=== PATIENT | male | born 1955 | race Caucasian/White ===

== ENCOUNTER 2021-10-12 05:07 | Emergency (ER) | payer MEDICARE, BC ==
[~2021-10-12] VITALS: Ht 177.8 cm; Wt 98.4 kg
[~2021-10-12 05:07] MED LIST: CEFUROXIME250 MG PO; DOXYCYCLINE HY100 MG PO; ELIQUIS5 MG PO; FISH OIL 1,2001 EAC4 PO; FLAX SEED OIL1 EACH PO; LOSARTAN POTAS100 MG PO; SEPTRA DS TABL1 EACH PO; TYLENOL WITH C1 EACH PO; VITAMIN D2000 UNIT PO
== END 2021-10-12 07:10 | disposition home or self-care (01) ==
LOC: ED 05:07
DX: N48.33 Priapism, drug-induced (principal); Z85.46 Personal history of malignant neoplasm of prostate; I10 Essential (primary) hypertension; Z88.1 Allergy status to other antibiotic agents; Z88.8 Allergy status to other drugs, medicaments and biological substances; Z79.899 Other long term (current) drug therapy
CPT/HCPCS: 10160; 82803; 99284-25; A9270

== ENCOUNTER 2022-12-16 07:21 | Day surgery (SDC) | payer MEDICARE, BC ==
[2022-12-10 08:14] VITALS: BP 135/77
[~2022-12-16] VITALS: Ht 177.8 cm; Wt 100.0 kg
--- NOTE | ~2022-12-16 | OR ---
[facility] [address] [facility] [place], [place] [address] [place] DATE OF OPERATION: 12/16/2022 SURGEON: Mateo Chou MD PREOPERATIVE DIAGNOSIS: Colon screening. POSTOPERATIVE DIAGNOSIS: Sigmoid diverticulosis. PROCEDURE: Total colonoscopy to the cecum. ANESTHESIA: Intravenous sedation with propofol infusion, Beck Velasquez CRNA. INDICATION: This 67-year-old white man is a patient of [facility] Blunt and underwent colonoscopy in 2012 showing inflammatory changes of the cecum with no sign of polyp and ileum was normal. He is generally symptom-free at this time. He is here for colonoscopy and surveillance. He understands the risk of bleeding, infection, and perforation and wished to proceed. FINDINGS: The prep was good. Complete colonoscopy was undertaken of the cecum without question. Full intubation of the cecum was acquired. The terminal ileum and cecum were normal. The remaining colon was normal except for diverticular changes of the sigmoid. DESCRIPTION OF PROCEDURE: The patient was brought to the endoscopy suite and placed in the lateral decubitus position, given intravenous sedation with propofol infusional technique based on numerous medical cofactors. After satisfactory sedation was induced, digital rectal exam was found to be normal. An Olympus video colonoscope was passed in the rectum and manipulated throughout the colon ultimately intubating the cecum itself. The scope was withdrawn from that point and examination throughout showed no sign of abnormality into the sigmoid and left colon. There are scattered deep sulci diverticula were noted. Retroflexed view of the rectum was normal. Scope was removed and the patient was taken to the recovery room in good condition. CONCLUDING DIAGNOSIS: PATIENT NAME: SONYA FIGUEROA OPERATIVE REPORT DATE OF : 53 REPORT #: [id number] PHYSICIAN: MATEO CHOU MD PCP: [facility]UN[facility] PAC REPORT IS CONFIDENTIAL AND NOT TO BE RELEASED WITHOUT AUTHORIZATION [address] [place], [place] [address] Draft Essentially normal colon except for diverticulosis. PLAN: Recommend repeat colonoscopy in 10 years, sooner if clinically indicated. MD GREGG Rucker/NAY /[id number] cc: Flash Blunt PA-C Copies: ~ PATIENT NAME: SONYA FIGUEROA OPERATIVE REPORT DATE OF : 53 REPORT #: [id number] PHYSICIAN: MATEO CHOU MD PCP: [facility]T PAC REPORT IS CONFIDENTIAL AND NOT TO BE RELEASED WITHOUT AUTHORIZATION
[~2022-12-16 07:21] MED LIST changes: +FISH OIL 1,0001 EAC6 PO; +OSTERA TABLET1 EACH PO; +SILDENAFIL20 MG PO
[2022-12-16 07:44] VITALS: BP 149/68
--- NOTE | 2022-12-16 11:51 | NUR ---
12/16/22 1151 Natasha Pardo 1138- PT ARRIVES TO UNIT FROM OR VIA STRETCHER. PT IS ALERT AND ORIENTED AND ON RA AT THIS TIME. RESPIRATIONS ARE EVEN AND UNLABORED, O2 >90% ON RA. PT REPORTS PAIN 4/10 BUT STATES THIS IS "GAS PAIN". PT STATES NO NAUSEA AT THIS TIME.
[2022-12-16 12:18] VITALS: BP 154/88
== END 2022-12-16 12:25 | disposition home or self-care (01) ==
LOC: DS 07:21 → OPS 07:21 → DS 10:00 → OPS 12:25
PROVIDERS: ATTEND Surgery
PROC: 0DJD8ZZ Inspection of Lower Intestinal Tract, Via Natural or Artificial Opening Endoscopic (ICD-10-PCS; principal; 2022-12-16 09:00)
DX: Z12.11 Encounter for screening for malignant neoplasm of colon (principal); K43.2 Incisional hernia without obstruction or gangrene; Z86.010 Personal history of colon polyps; K57.30 Diverticulosis of large intestine without perforation or abscess without bleeding; Z85.46 Personal history of malignant neoplasm of prostate
CPT/HCPCS: G0105; J2704; J3010; J7121